=== PATIENT | female | born 1960 | race American Indian/Alaskan Native ===

== ENCOUNTER 2020-09-02 23:27 | Emergency (ER) | payer OTHER ==
[2020-09-02] MEDS ORDERED: ASPIRIN 325 MG TAB PO ONE (23:46)
--- NOTE | 2020-09-03 00:13 | XRay Report ---
CHEST 2 VIEWS INDICATION: chest pain. COMPARISON: None FINDINGS: SUPPORT DEVICES: None. HEART: Within normal limits. LUNGS/PLEURA: No acute air space or interstitial disease. No pneumothorax. ADDITIONAL FINDINGS: None. IMPRESSION: 1. No acute findings. Signer Name: Tong Fisher MD Signed: 09/03/2020 12:09 AM Workstation Name: [id number]
--- NOTE | 2020-09-03 00:48 | Event Note ---
ED Screening Note Date of service: 09/03/20 Time: 00:43 ED Screening Note: 60-year-old female patient with history of hypertension and tobacco use presents to emergency department with complaints of pleuritic chest pain with associated dyspnea starting 2 days ago and worsening today. Describes the pain as "tightness," worse with coughing, yawning, and deep inhalation. Patient states the pain radiates to her jaw and left upper extremity when present. Pain improves with rest. No known history of coronary artery disease. Took 1 baby aspirin prior to arrival. Denies fever, chills, cough, palpitations, diaphoresis, syncope, lower extremity pain/swelling. Denies all other complaints at this time. VTE risk factors: Patient does endorse recent prolonged immobilization (16-hour drive to [place]) within the last few weeks. She is low risk for PE per Wells criteria; D-dimer obtained for further evaluation. IV contrast allergy noted and discussed with Dr. Hernandez. General: Awake, appropriately interactive, no acute distress. Neck: Supple. Full range of motion intact. Cardiovascular: Regular rate and rhythm. Normal peripheral perfusion. Reproducible chest wall tenderness. Pulmonary: Lungs are clear to auscultation. No respiratory distress. Patient is speaking normally without use of accessory muscles. Skin: No apparent rashes or lesions. Neurological: No facial asymmetry. Speech is clear. Follows commands. Patient is alert and oriented. Musculoskeletal: Moves all four extremities spontaneously with normal range of motion. Psych: Cooperative. Appropriate mood and affect. I have greeted and performed a focused rapid initial assessment of this patient. A comprehensive ED assessment and evaluation of the patient, analysis of all test results, and completion of the medical decision-making process will be conducted by additional ED providers. This initial assessment/diagnostic orders/clinical plan/treatment(s) is/are subject to change based on patients health status, clinical progression and re-assessment. Further treatment and workup at subsequent clinical provider's discretion. Patient/guardian urged not to elope from the ED as their condition may be serious if not clinically assessed and managed.
[2020-09-03 00:49] LABS: Basophils # (Auto) 0.1 K/mm3 (0.0-0.1); Basophils % (Auto) 0.7 % (0.0-1.8); Eosinophils # (Auto) 0.1 K/mm3 (0.0-0.4); Eosinophils % (Auto) 1.3 % (0.0-4.3); Hemoglobin 13.9 gm/dl (10.1-14.3); Lymphocytes % (Auto) 33.1 % (13.4-35.0); Mean Corpuscular HGB Conc 34 % (30-34); Mean Corpuscular Volume 88 fl (79-97); Monocytes # (Auto) 0.6 K/mm3 (0.0-0.8); Monocytes % (Auto) 6.4 % (0.0-7.3); Platelet Count 251 K/mm3 (140-440); Red Blood Count 4.67 M/mm3 (3.65-5.03)
[2020-09-03 01:02] LABS: Alanine Aminotransferase 24 units/L (7-56); Albumin 4.2 g/dL (3.9-5); BUN/Creatinine Ratio 18; Blood Urea Nitrogen 16 mg/dL (7-17); Calcium 9.8 mg/dL (8.4-10.2); Hemolysis Index 5
[2020-09-03 01:39] LABS: INR 0.87 (0.87-1.13)
[2020-09-03 01:40] LABS: Partial Thromboplastin Time 24.1 Sec. (24.2-36.6)
--- NOTE | 2020-09-03 07:54 | Emergency Department Report ---
HPI - General Chief Complaint: Chest Pain Time Seen by Provider: 09/03/20 07:35 - HPI HPI: Room 4 The patient is a 60-year-old female present with a chief complaint of chest left shoulder pain. Patient states 3 nights ago she believes she was bitten on her back by an insect. Patient states the area itched but the following morning she noticed pain in the left shoulder left upper extremity and left chest described as a pressure in nature. Patient denies shortness of breath or nausea/vomiting with the pain but admits to diaphoresis. Patient states whenever she leans on the left side the pain increases or when she yawns she has pain. Patient admits to an occasional cough for several months but denies recent flights/long car trips. Patient states she's never had a stress test or cardiac catheterization ED Past Medical Hx - Past Medical History Previous Medical History?: Yes Hx Hypertension: Yes - Surgical History Past Surgical History?: No - Family History Family history: no significant - Social History Smoking Status: Current Every Day Smoker (1/3 pack/day) Substance Use Type: None (Denies illicit drug use) - Medications Home Medications: Home Medications Medication Instructions Recorded Confirmed Last Taken Type Amlodipine Besylate/Benazepril 1 each PO QDAY 07/17/14 07/17/14 07/16/14 History [Lotrel 10-20 mg] Famotidine [Pepcid] 20 mg PO BID #60 tablet 07/18/14 Unknown Rx Omeprazole [PriLOSEC] 20 mg PO QDAY #30 capsule. 07/18/14 Unknown Rx Sucralfate [Carafate] 1 gm PO Q6HR #20 tablet 07/18/14 Unknown Rx EPINEPHrine [Epipen 2-Zachary] 0.3 mg IJ ONCE PRN #2 auto.injct 10/04/19 Unknown Rx Famotidine [Pepcid] 20 mg PO BID 5 Days #10 tablet 10/04/19 Unknown Rx predniSONE [Deltasone] 20 mg PO QDAY 5 Days #5 tab 10/04/19 Unknown Rx Cyclobenzaprine [Flexeril] 10 mg PO TID PRN #10 tablet 09/03/20 Unknown Rx Famotidine [Pepcid] 20 mg PO BID #20 tablet 09/03/20 Unknown Rx HYDROcodone/APAP 5-325 [Burns 1 - 2 each PO Q6HR PRN #10 tablet 09/03/20 Unknown Rx 5/325] ED Review of Systems ROS: Stated complaint: CHEST PAIN; LEFT ARM PAIN Other details as noted in HPI Constitutional: diaphoresis Eyes: denies: eye pain ENT: denies: throat pain Respiratory: cough. denies: shortness of breath Cardiovascular: chest pain Endocrine: no symptoms reported Gastrointestinal: denies: nausea, vomiting Genitourinary: denies: dysuria Musculoskeletal: arthralgia Neurological: headache Physical Exam - Physical Exam Vital Signs: Vital Signs 09/02/20 09/02/20 23:41 23:46 Temperature 97.9 F Pulse Rate 75 72 Respiratory 18 Rate Blood Pressure 152/92 O2 Sat by Pulse 100 Oximetry Physical Exam: GENERAL: The patient is well-developed well-nourished female lying on stretcher not appearing to be in acute distress. [] HEENT: Normocephalic. Atraumatic. Extraocular motions are intact. Patient has moist mucous membranes. NECK: Supple. Trachea midline CHEST/LUNGS: Clear to auscultation. There is no respiratory distress noted. HEART/CARDIOVASCULAR: Regular. There is no tachycardia. There is no gallop rub or murmur. ABDOMEN: Abdomen is soft, nontender. Patient has normal bowel sounds. There is no abdominal distention. SKIN: There is no rash. There is no edema. There is no diaphoresis. NEURO: The patient is awake, alert, and oriented. The patient is cooperative. The patient has no focal neurologic deficits. The patient has normal speech MUSCULOSKELETAL: There is no evidence of acute injury. ED Course Vital Signs 09/02/20 09/02/20 23:41 23:46 Temperature 97.9 F Pulse Rate 75 72 Respiratory 18 Rate Blood Pressure 152/92 O2 Sat by Pulse 100 Oximetry ED Medical Decision Making - Lab Data Result diagrams: 09/03/20 00:24 09/03/20 00:24 Laboratory Tests 09/03/20 09/03/20 09/03/20 00:24 00:24 00:56 WBC 9.2 RBC 4.67 Hgb 13.9 Hct 41.0 MCV 88 MCH 30 MCHC 34 RDW 14.0 Plt Count 251 Lymph % (Auto) 33.1 [place] % (Auto) 6.4 Eos % (Auto) 1.3 Baso % (Auto) 0.7 Lymph # (Auto) 3.0 [place] # (Auto) 0.6 Eos # (Auto) 0.1 Baso # (Auto) 0.1 Seg Neutrophils % 58.5 Seg Neutrophils # 5.4 PT 11.6 L INR 0.87 APTT 24.1 L D-Dimer 237.19 H Sodium 141 Potassium 3.5 L Chloride 103.0 Carbon Dioxide 29 Anion Gap 13 BUN 16 Creatinine 0.9 Estimated GFR > 60 BUN/Creatinine Ratio 18 Glucose 100 Calcium 9.8 Magnesium Total Bilirubin 0.20 AST 16 ALT 24 Alkaline Phosphatase 115 Troponin T < 0.010 Total Protein 7.6 Albumin 4.2 Albumin/Globulin Ratio 1.2 09/03/20 09/03/20 09/03/20 00:56 02:41 06:50 WBC RBC Hgb Hct MCV MCH MCHC RDW Plt Count Lymph % (Auto) [place] % (Auto) Eos % (Auto) Baso % (Auto) Lymph # (Auto) [place] # (Auto) Eos # (Auto) Baso # (Auto) Seg Neutrophils % Seg Neutrophils # PT INR APTT D-Dimer Sodium Potassium Chloride Carbon Dioxide Anion Gap BUN Creatinine Estimated GFR BUN/Creatinine Ratio Glucose Calcium Magnesium 2.20 Total Bilirubin AST ALT Alkaline Phosphatase Troponin T < 0.010 < 0.010 Total Protein Albumin Albumin/Globulin Ratio - EKG Data -: EKG Interpreted by Me EKG shows normal: sinus rhythm Rate: normal - EKG Data When compared to previous EKG there are: previous EKG unavailable Interpretation: other (No ischemic changes seen) - Radiology Data Radiology results: report reviewed (Chest x-ray, VQ scan), image reviewed (Chest x-ray, VQ scan) interpreted by me: Chest x-ray-no focal infiltrates, no pneumothorax. No foreign body seen [facility] [address] [place] [address] Nuclear Medicine Report Signed Patient: FLAKITO CHAPARRO MR#: [id number] 2 : 1960 Acct:[id number] Age/Sex: 60 / F ADM Date: 09/02/20 Loc: ED Attending Dr: Ordering Physician: ISABEL ASENCIO MD Date of Service: 09/03/20 Procedure(s): NM perfusion only lung scan Accession Number(s): [id number] cc: ISABEL ASENCIO MD NM perfusion only lung scan INDICATION / CLINICAL INFORMATION: Chest pain, elevated D-dimer. TECHNIQUE: Dose / Agent / Route: 5.5 mCi Tc-99 MAA IV COMPARISON: No relevant prior imaging study available. FINDINGS: No significant focal segmental or subsegmental perfusion defect is seen IMPRESSION: No perfusion defects seen on this exam Signer Name: Caleb Flores MD FACR Signed: 09/03/2020 10:17 AM Workstation Name: [id number] Transcribed By: MS Dictated By: Caleb Flores MD Electronically Authenticated By: Caleb Flores MD Signed Date/Time: 09/03/201016 DD/ 14 TD/TT: Print Cancel [facility] [address] [place] [address] XRay Report Signed Patient: FLAKITO CHAPARRO MR#: [id number] 2 : 1960 Acct:[id number] Age/Sex: 60 / F ADM Date: 09/02/20 Loc: ED Attending Dr: Ordering Physician: GENA FRYE MD Date of Service: 09/02/20 Procedure(s): XR chest routine 2V Accession Number(s): [id number] cc: ED MD MELVA Fluoro Time In Minutes: CHEST 2 VIEWS INDICATION: chest pain. COMPARISON: None FINDINGS: SUPPORT DEVICES: None. HEART: Within normal limits. LUNGS/PLEURA: No acute air space or interstitial disease. No pneumothorax. ADDITIONAL FINDINGS: None. IMPRESSION: 1. No acute findings. Signer Name: Tong Fisher MD Signed: 09/03/2020 12:09 AM Workstation Name: [id number] Transcribed By: VIKKI Dictated By: Tong Fisher MD Electronically Authenticated By: Tong Fisher MD Signed Date/Time: 09/03/208 DD/ 000 TD/TT: Print Cancel - Medical Decision Making Patient's information faxed to chest pain referral for [facility] ([phone]) - Differential Diagnosis ACS, PE, pericarditis, musculoskeletal pain, GERD Critical care attestation.: If time is entered above; I have spent that time in minutes in the direct care of this critically ill patient, excluding procedure time. ED Disposition Clinical Impression: Atypical chest pain Disposition: DC-01 TO HOME OR SELFCARE Is pt being admited?: No Does the pt Need Aspirin: No Condition: Stable Instructions: Nonspecific Chest Pain, Adult Additional Instructions: Return to the emergency department should you develop worsening symptoms, inability to tolerate food or liquids, high fever or any other concerns Prescriptions: Cyclobenzaprine [Flexeril] 10 mg PO TID PRN #10 tablet PRN Reason: Muscle Spasm HYDROcodone/APAP 5-325 [Burns 5/325] 1 - 2 each PO Q6HR PRN #10 tablet PRN Reason: Pain Famotidine [Pepcid] 20 mg PO BID #20 tablet Referrals: [facility] [Provider Group] - 3-5 Days KARYN PETERS MD [Staff Physician] - 3-5 Days (Dr. Peters is a blueprint processor. Please follow-up with him for further evaluation) Time of Disposition: 11:02 Heart Score - HEART Score History: Slightly suspicious EKG: Normal Age: 45-65 Risk factors: 1-2 risk factors Troponin: < normal limit HEART Score: 2 - EKG Read Time Time EKG Completed: 10:41 EKG Read Time: 10:46
--- NOTE | 2020-09-03 10:21 | Nuclear Medicine Report ---
NM perfusion only lung scan INDICATION / CLINICAL INFORMATION: Chest pain, elevated D-dimer. TECHNIQUE: Dose / Agent / Route: 5.5 mCi Tc-99 MAA IV COMPARISON: No relevant prior imaging study available. FINDINGS: No significant focal segmental or subsegmental perfusion defect is seen IMPRESSION: No perfusion defects seen on this exam Signer Name: Caleb Flores MD FACR Signed: 09/03/2020 10:17 AM Workstation Name: [id number]
[2020-09-03] MEDS ORDERED: POTASSIUM CHLORIDE ER 20 MEQ TAB PO ONE (10:31)
[2020-09-03 11:19] VITALS: BP 142/82
--- NOTE | 2020-09-05 13:35 | Electrocardiograph Report ---
[facility] Test Date: 2020-09-02 Test Time: 23:34:17 Pat Name: FLAKITO CHAPARRO Department: Room: Gender: F Order Dispatcher Chief: BALA : 1960 Requested By: ISABEL ASENCIO Order Number: [id number] Reading MD: Vi Harris Measurements Intervals [place] Rate: 72 P: 76 [place]: 164 QRS: -10 QRSD: 95 T: 50 QT: 409 QTc: 449 Interpretive Statements Incomplete analysis due to missing data in precordial lead(s) Sinus rhythm No previous ECG available for comparison Electronically Signed On 09-05-2020 13:35:08 EDT by Vi Harris
--- NOTE | 2020-09-05 13:37 | Electrocardiograph Report ---
[facility] Test Date: 2020-09-03 Test Time: 10:41:06 Pat Name: FLAKITO CHAPARRO Department: Room: Gender: F Crusher Supervisor: CARLOS : 1960 Requested By: ISABEL ASENCIO Order Number: [id number] Reading MD: Vi Harris Measurements Intervals [place] Rate: 64 P: 73 [place]: 207 QRS: -11 QRSD: 86 T: 16 QT: 431 QTc: 445 Interpretive Statements Sinus rhythm Borderline prolonged [place] interval No previous ECG available for comparison Electronically Signed On 09-05-2020 13:37:20 EDT by Vi Harris
== END 2020-09-03 11:20 | disposition home or self-care (01) ==
LOC: ED 23:27
DX: R07.89 Other chest pain (principal); M25.512 Pain in left shoulder; I10 Essential (primary) hypertension; F17.200 Nicotine dependence, unspecified, uncomplicated; Z79.899 Other long term (current) drug therapy; Z91.013 Allergy to seafood; Z88.8 Allergy status to other drugs, medicaments and biological substances
CPT/HCPCS: 36415; 71046; 78580; 80053; 83735; 84484; 85025; 85379; 85610; 85730; 93005; 99284; A9540

== ENCOUNTER 2021-12-10 01:29 | Emergency (ER) | payer SELFPAY ==
[2021-12-10 01:42] VITALS: BP 156/90
--- NOTE | 2021-12-11 10:01 | Electrocardiograph Report ---
[facility] Test Date: 2021-12-10 Test Time: 01:36:27 Pat Name: FLAKITO CHAPARRO Department: Room: Gender: F Die Operator: DNATE : 1960 Requested By: SHANTELLE STEPHENS Order Number: [id number] Reading MD: Victoriano Lozano Measurements Intervals [place] Rate: 77 P: 69 [place]: 180 QRS: -10 QRSD: 85 T: 50 QT: 405 QTc: 460 Interpretive Statements Sinus rhythm Probable left atrial enlargement Probable left ventricular hypertrophy Compared to ECG 09/03/2020 10:41:06 No significant changes Electronically Signed On 12-11-2021 10:01:12 EDT by Victoriano Lozano
== END 2021-12-10 03:27 | disposition home or self-care (01) ==
LOC: ED 01:29
DX: R07.9 Chest pain, unspecified (principal); Z53.21 Procedure and treatment not carried out due to patient leaving prior to being seen by health care provider
CPT/HCPCS: 93005